=== PATIENT | female | born 1980 | race Caucasian/White ===

== ENCOUNTER 2017-05-13 18:39 | Emergency (ER) | payer BC, OTHER ==
[2017-05-13 19:14] VITALS: BP 113/79
[2017-05-13] MEDS ORDERED: HYDROCODONE/ACETAMINOPHEN 5-325 MG (6 TAB/ER DISP) PO PRN (21:26)
[2017-05-13] MEDS ORDERED: CEPHALEXIN 500 MG CAPSULE PO ONE (21:26)
[2017-05-13] MEDS ORDERED: SULFAMETHOXAZOLE/TRIMETHOPRIM 800-160 MG TABLET PO ONE (21:26)
--- NOTE | 2017-05-13 21:30 | ER Document Report ---
ED Extremity Problem, Lower - General Chief Complaint: Foot Pain Stated Complaint: FOOT PAIN Time Seen by Provider: 05/13/17 21:25 Mode of Arrival: Ambulatory Information source: Patient Notes: 36-year-old female presented ED for complaint of pain to the right big toe this started yesterday. Patient presented with erythema pain and swelling to the side of the nail of the right great toe. - HPI Patient complains to provider of: Pain, Swelling Location: Great Toe Occurred: Yesterday Onset/Duration: Gradual Quality of pain: Pressure, Sharp Severity: Moderate Pain Level: 4 Context: Other - Pain swelling redness to the right great toe Recent injury: No Associated symptoms: Painful ambulation Exacerbated by: Movement, Walking Relieved by: Nothing - Related Data Allergies/Adverse Reactions: No Known Allergies Allergy (Verified 05/13/17 18:42) Past Medical History - General Information source: Patient - Social History Smoking Status: Current Every Day Smoker Cigarette use (# per day): Yes - 5-6 cigarettes a day Chew tobacco use (# tins/day): No Smoking Education Provided: Yes - 4 minutes Frequency of alcohol use: None Drug Abuse: Marijuana Occupation: [employer] with: Family Family History: Reviewed & Not Pertinent Patient has suicidal ideation: No Patient has homicidal ideation: No - Past Medical History Cardiac Medical History: Reports: None Pulmonary Medical History: Reports: None EENT Medical History: Reports: None Neurological Medical History: Reports: None Endocrine Medical History: Reports: None Renal/ Medical History: Reports: None Malignancy Medical History: Reports: None GI Medical History: Reports: None Musculoskeltal Medical History: Reports None Skin Medical History: Reports None Psychiatric Medical History: Reports: None Traumatic Medical History: Reports: None Infectious Medical History: Reports: None Past Surgical History: Reports: Hx Tubal Ligation - Immunizations Immunizations up to date: Yes Hx Diphtheria, Pertussis, Tetanus Vaccination: Yes Review of Systems - Review of Systems Constitutional: No symptoms reported EENT: No symptoms reported Cardiovascular: No symptoms reported Respiratory: No symptoms reported Gastrointestinal: No symptoms reported Genitourinary: No symptoms reported Female Genitourinary: No symptoms reported Musculoskeletal: No symptoms reported Skin: Other - Pain and swelling to the site of the right great toenail Hematologic/Lymphatic: No symptoms reported Neurological/Psychological: No symptoms reported -: Yes All other systems reviewed and negative Physical Exam - Vital signs Vitals: Temp Pulse Resp BP Pulse Ox 98.8 F 72 18 113/79 99 05/13/17 19:13 05/13/17 19:13 05/13/17 19:13 05/13/17 19:13 05/13/17 19:13 Interpretation: Normal - General General appearance: Appears well, Alert - HEENT Head: Normocephalic, Atraumatic Eyes: Normal Pupils: PERRL - Respiratory Respiratory status: No respiratory distress Chest status: Nontender Breath sounds: Normal Chest palpation: Normal - Cardiovascular Rhythm: Regular Heart sounds: Normal auscultation Murmur: No - Abdominal Inspection: Normal Distension: No distension Bowel sounds: Normal Tenderness: Nontender Organomegaly: No organomegaly - Back Back: Normal, Nontender - Extremities General upper extremity: Normal inspection, Nontender, Normal color, Normal ROM , Normal temperature General lower extremity: Normal inspection, Nontender, Normal color, Normal ROM , Normal temperature, Normal weight bearing. No: Mario's sign - Neurological Neuro grossly intact: Yes Cognition: Normal Orientation: AAOx4 Katt Coma Scale Eye Opening: Spontaneous [place] Coma Scale Verbal: Oriented Katt Coma Scale Motor: Obeys Commands Katt Coma Scale Total: 15 Speech: Normal Motor strength normal: LUE, RUE, LLE, RLE Sensory: Normal - Psychological Associated symptoms: Normal affect, Normal mood - Skin Skin Temperature: Warm Skin Moisture: Dry Skin Color: Normal Skin irregularity: Abscess - Paronychia to the right great toe Character of irregularity: Erythematous Irregularity with: Swelling, Tenderness, Warmth Course - Re-evaluation Re-evalutation: 05/14/17 02:26 Paronychia was I&D with an 18-gauge needle after cleaned with Betadine. Patient was treated with Keflex and Septra and instructed on use of Epson salt soaks. Patient was discharged home with a [facility] dispense pack and prescriptions for Septra and Keflex. Patient to follow-up with a human resources representative if paronychia does not heal properly. - Vital Signs Vital signs: Temp Pulse Resp BP Pulse Ox 98.8 F 72 18 113/79 99 05/13/17 19:13 05/13/17 19:13 05/13/17 19:13 05/13/17 19:13 05/13/17 19:13 Procedures - Incision and Drainage Right Toe Great toe Time completed: 21:15 Type: Simple Anesthetic type: Other - None mL's of anesthetic: 0 Blade size: Other - 18-gauge needle I&D procedure: Betadine prep applied, Sterile dressing applied Incision Method: Incision made with needle Amount/type of drainage: Small amount purulent drainage Discharge - Discharge Clinical Impression: Paronychia of great toe, right Condition: Stable Disposition: HOME, SELF-CARE Instructions: Family Physicians / Practices Additional Instructions: Paronychia You have an infection between the nail and the surrounding skin, called a paronychia. The germs infect the area after a minor skin injury, such as a hangnail. This infection is treated by releasing the pus. This is usually done by the skin from the nail. If the infection has spread underneath the nail, partial removal of the nail may be necessary. Hot-soak the area three or four times daily. Antibiotics are often given, but are not always necessary. Healing takes about a week. If pain or swelling becomes severe or if you develop fever or chills, call the doctor or return for re-examination. POST INCISION AND DRAINAGE: You have had an incision made to allow drainage of an abscess. The incision must remain open so that pus and debris can drain from the wound. If the abscess cavity is large, packing is placed. This keeps the tissues from collapsing and trapping pus inside, while the body shrinks the cavity. The packing may need to be replaced every day or two. The physician will instruct you on the packing. Keep a bulky dressing over the area. Replace it if it becomes saturated with blood or pus. Do not disturb the packing (if present). You may shower and cleanse the area with gentle soap and warm water two or three times a day. Local warmth may be soothing, and may promote faster healing. Return if you develop high fever or chills, or if you note spreading redness, increasing swelling, or increasing tenderness. ORAL NARCOTIC MEDICATION: You have been given a [facility] dispense pack for pain control. This medication is a narcotic. It's best taken with food, as nausea can result if taken on an empty stomach. Don't operate machinery or drive within six hours of taking this medication. Do not combine this medicine with alcohol, or with any medication which can cause sedation (such as cold tablets or sleeping pills) unless you get permission from the physician. Narcotics tend to cause constipation. If possible, drink plenty of fluids and eat a diet high in fiber and fruits. CEPHALEXIN: The antibiotic you've been prescribed is a member of the cephalosporin class. This type of antibiotic covers a wide variety of infections, including those of the skin, lungs, and urinary tract. It's useful for staph infections. This antibiotic is slightly similar to the penicillin family. In rare cases , a person who is allergic to penicillin will also be allergic to this medication. If you have had a severe allergic reaction to penicillin, and have not taken this antibiotic since that time, notify your doctor. Antibiotics which cover many germs ("broad spectrum" antibiotics) are more likely to cause diarrhea or "yeast" infections. Women prone to vaginal yeast problems may suffer an attack after taking this antibiotic. In infants, oral thrush (white spots "stuck" on the cheek) or yeast diaper rash may result. See your doctor if these problems occur. Call at once if you develop itching, hives , shortness of breath, or lightheadedness. TRIMETHOPRIM-SULFA: You have been given a prescription for trimethoprim-sulfa (TMS, Septra, Bactrim). This is a combination antibiotic of the sulfa class, often used for urinary tract infections, middle ear infections, bronchitis, shigella intestinal infection, and Pneumocystis pneumonia. TMS is usually well-tolerated. Occasional side effects include nausea and decreased appetite. Septra is not recommended for infants less than two months of age. Do not take this medication if you have experienced severe side effects or allergy to sulfa medicine. You should stop this medicine at once and contact your physician if you develop any rash, joint pain, shortness of breath, bruising, or jaundice ( yellow color in the skin), or if you develop any other new or unusual symptoms. Epsom Salt Soaks Soak the wound area in a container of warm epsom salt water. If you can't get the wound area into a bucket or whitfield, use a folded towel soaked in the epsom salt solution and apply to the area. Use clean hot tap water (about the temperature of a very warm bath), mixing in about one (1) teaspoon for every pint of water. Two gallon --> 16 teaspoons Epsom Salts One gallon --> 8 teaspoons Epsom Salts Two quarts --> 4 teaspoons Epsom Salts One quart --> 2 teaspoons Epsom Salts Soak the wound for about 20 minutes while gently moving it around in the water. Repeat this four (4) times a day. FOLLOW-UP CARE: Most simple abscesses will not require a follow up visit. If you had packing placed in the abscess, remove it as instructed by the physician. If you have been referred to a physician for follow-up care, call the physicians office for an appointment as you were instructed or within the next two days. If you experience worsening or a significant change in your symptoms, return to the Emergency Department at any time for re-evaluation. Prescriptions: Cephalexin Monohydrate [Keflex 500 mg Capsule] 500 mg PO Q6H 5 Days capsule Sulfamethoxazole/Trimethoprim [Septra-Ds 800-160 mg Tablet] 1 tab PO BID #20 tablet Forms: Smoking Cessation Education, Return to Work Referrals: MOISÉS SPENCER DPM [ACTIVE STAFF] - Follow up as needed [facility] [Provider Group] - Follow up as needed
== END 2017-05-13 22:19 | disposition home or self-care (01) ==
LOC: ER 18:39
PROC: 0H9MXZZ Drainage of Right Foot Skin, External Approach (ICD-10-PCS; principal; 2017-05-13)
DX: L03.031 Cellulitis of right toe (principal); M79.671 Pain in right foot; M79.674 Pain in right toe(s); M79.89 Other specified soft tissue disorders; F17.210 Nicotine dependence, cigarettes, uncomplicated
CPT/HCPCS: 99283

== ENCOUNTER 2017-10-15 12:25 | Inpatient (IN) | payer BC ==
[2017-10-15 13:24] LABS: ABSOLUTE BASOPHILS # (AUTO) 0.1 10^3/uL (0.0-0.2); ABSOLUTE EOSINOPHILS # (AUTO) 0.2 10^3/uL (0.0-0.6); ABSOLUTE LYMPHOCYTES (AUTO) 1.9 10^3/uL (0.5-4.7); ABSOLUTE MONOCYTES (AUTO) 0.5 10^3/uL (0.1-1.4); ABSOLUTE NEUT (AUTO) 4.7 10^3/uL (1.7-8.2); BASOPHILS % (AUTO) 0.9 % (0-2); EOSINOPHILS % (AUTO) 2.3 % (0-6); HEMATOCRIT 41.6 % (36.0-47.0); HEMOGLOBIN 13.4 g/dL (12.0-15.5); LYMPHOCYTES % (AUTO) 26.3 % (13-45); MEAN CORPUSCULAR HEMOGLOBIN 25.8 pg (27.0-33.4); MEAN CORPUSCULAR HGB CONC 32.3 g/dL (32.0-36.0); MEAN CORPUSCULAR VOLUME 80 fl (80-97); MONOCYTES % (AUTO) 7.4 % (3-13); PLATELET COUNT 246 10^3/uL (150-450); RED BLOOD COUNT 5.21 10^6/uL (3.72-5.28); RED CELL DISTRIBUTION WIDTH 17.1 % (11.5-14.0); SEGMENTED NEUTROPHILS % (AUTO) 63.1 % (42-78); TOTAL CELLS COUNTED % (AUTO) 100 %; WHITE BLOOD COUNT 7.4 10^3/uL (4.0-10.5)
[2017-10-15 13:25] LABS: APPEARANCE,URINE CLEAR; BILIRUBIN,URINE NEGATIVE (NEGATIVE); COLOR,URINE COLORLESS; GLUCOSE, URINE NEGATIVE (NEGATIVE); KETONES,URINE NEGATIVE (NEGATIVE); LEUKOCYTE ESTERASE,URINE NEGATIVE (NEGATIVE); NITRITE,URINE NEGATIVE (NEGATIVE); PROTEIN,URINE NEGATIVE (NEGATIVE); URINE SPECIFIC GRAVITY 1.003; UROBILINOGEN,URINE NEGATIVE mg/dL (<2.0)
[2017-10-15 13:31] LABS: ALANINE AMINOTRANSFERASE 9 U/L (9-52); ALKALINE PHOSPHATASE 64 U/L (38-126); ANION GAP 14 (5-19); ASPARTATE AMINO TRANSFERASE 18 U/L (14-36); BILIRUBIN,DIRECT 0.3 mg/dL (0.0-0.4); BILIRUBIN,TOTAL 0.5 mg/dL (0.2-1.3); BLOOD UREA NITROGEN 12 mg/dL (7-20); CARBON DIOXIDE 20 mmol/L (22-30); CHLORIDE 110 mmol/L (98-107); GLUCOSE 82 mg/dL (75-110); POTASSIUM 4.2 mmol/L (3.6-5.0); SODIUM 143.7 mmol/L (137-145); TOTAL PROTEIN 7.4 g/dL (6.3-8.2)
[2017-10-15] MEDS ORDERED: NORMAL SALINE 1000 ML 1,000 ML IV ONE (14:10)
--- NOTE | 2017-10-15 14:17 | ER Document Report ---
ED Psych Disorder / Suicide - General Mode of Arrival: Medic Information source: Relative TRAVEL OUTSIDE OF THE [place] IN LAST 30 DAYS: No <JAMARI RAMIREZ - Last Filed: 10/15/17 14:08> <JOSE NGUYEN - Last Filed: 10/15/17 17:00> - General Chief Complaint: Possible Overdose Stated Complaint: POSSIBLE OVER OVERDOSE Time Seen by Provider: 10/15/17 13:59 Notes: 36-year-old female who presents to the emergency department today after being found unresponsive by her . at bedside states that her and the patient had been having "problems" for the last few weeks and on Saturday the patient moved out of the house they share to live with a friend. goes on to state that the patient had been having a relationship with another female which is what caused the problems in their marriage. Patient states when he left his house this morning at 0700 she was not there but when he arrived back at home at around 0930 she was lying in his bed unresponsive and snoring. states that the patient has a history of "mixing drugs" and goes on to elaborate this as taking [place], Tylenol, and Motrin in normal doses together. (JAMARI RAMIREZ) - Related Data Allergies/Adverse Reactions: No Known Allergies Allergy (Verified 05/13/17 18:42) Past Medical History - General Information source[facility] - Social History Smoking Status: Current Every Day Smoker Cigarette use (# per day): Yes Family History: Reviewed & Not Pertinent Patient has suicidal ideation: No Patient has homicidal ideation: No Renal/ Medical History: Denies: Hx Peritoneal Dialysis Past Surgical History: Reports: Hx Tubal Ligation - Immunizations Immunizations up to date: Yes Hx Diphtheria, Pertussis, Tetanus Vaccination: Yes <JAMARI RAMIREZ - Last Filed: 10/15/17 14:08> Review of Systems - Review of Systems -: Yes ROS unobtainable due to patient's medical condition <JAMARI RAMIREZ - Last Filed: 10/15/17 14:08> Physical Exam <JAMARI RAMIREZ - Last Filed: 10/15/17 14:08> <JOSE NGUYEN - Last Filed: 10/15/17 17:00> - Vital signs Vitals: Resp Pulse Ox 17 98 10/15/17 12:46 10/15/17 12:46 - Notes Notes: Physical Exam: General: Somnolent, unresponsive, snoring respirations. HEENT: Normocephalic. Atraumatic. Pupils are small and sluggishly reactive. Oropharynx clear. Neck: Supple. Non-tender. Respiratory: No respiratory distress. Clear and equal breath sounds bilaterally. Cardiovascular: Regular rate and rhythm. Abdominal: Normal Inspection. Non-tender. No distension. Normal Bowel Sounds. Back: Non-tender. No deformity or step off. Extremities: Moves all four extremities. Upper extremities: Normal inspection. No edema. Lower extremities: Normal inspection. No edema. Skin: Warm. Dry. Normal color. (JAMARI RAMIREZ) Course - Laboratory Result Diagrams: 10/15/17 12:49 10/15/17 12:49 <JAMARI RAMIREZ - Last Filed: 10/15/17 14:08> - Laboratory Result Diagrams: 10/15/17 12:49 10/15/17 12:49 - Diagnostic Test Radiology reviewed: Reports reviewed - CT scan of the brain is normal. - EKG Interpretation by [facility] EKG shows normal: Sinus rhythm, [place], Intervals, QRS Complexes, ST-T Waves Rate: Normal - 62 Rhythm: NSR - Consults Dr. Reddy Time consulted: 16:05 Consulted provider: will come to ER <JOSE NGUYEN - Last Filed: 10/15/17 17:00> - Re-evaluation Re-evalutation: 10/15/17 15:26 Ammonia capsule was placed on the patient's nose. She promptly stopped breathing. She would occasionally take a breath, and stirred a little bit. At that point she was clenching her eyes closed. I lifted her eyelids and her pupils are gone from about 1 mm for the last few hours to suddenly widely dilated. When stimulated with more noxious stimulus the patient did tend to move her facial muscles and clench her eyes but did not try very hard to get away from the noxious stimulus. I did try placing a tongue blade in her mouth, had difficulty getting past the tongue as she almost seemed to be biting down, when I was able to get to the posterior pharynx she did have minimal gag. 10/15/17 16:12 The urine drug screen came back positive for benzodiazepines which could explain all the clinical findings. 10/15/17 16:21 I spoke with the who reports he just learned from 1 of his daughters that his 's new girlfriend takes pills and thinks that is the likely source of her getting access to benzodiazepines. He reports that he does take Xanax, however he keeps his pill bottle in a bag that he carries with him to and from work and he carried the medicines with him this morning. He states there are possibly a few pills missing and the medicine was at home yesterday when she was there. But he states if any is missing it is very few. He also reports that she does not normally eat breakfast. We know that she was trying to drink coffee at 0630 this morning, and the spouse reports that is her normal breakfast. Based on this information, the patient had nothing to eat in over 8 hours and nothing to drink in over 6 hours. (JOSE NGUYEN) - Vital Signs Vital signs: Temp Pulse Resp BP Pulse Ox 16 99/64 L 97 10/15/17 13:01 10/15/17 13:00 10/15/17 13:01 - Laboratory Laboratory results interpreted by me: 10/15/17 10/15/17 12:49 12:49 MCH 25.8 L RDW 17.1 H Chloride 110 H Carbon Dioxide 20 L Critical Care Note - Critical Care Note Total time excluding time spent on procedures (mins): 45 <JOSE NGUYEN - Last Filed: 10/15/17 17:00> Discharge <JAMARI RAMIREZ - Last Filed: 10/15/17 14:08> - Discharge Admitting Provider: Hospitalist Unit Admitted: ICU <JOSE NGUYEN - Last Filed: 10/15/17 17:00> - Discharge Clinical Impression: Altered mental status Qualifiers: Altered mental status type: unspecified Qualified Code(s): R41.82 - Altered mental status, unspecified Hypotension Qualifiers: Hypotension type: unspecified hypotension type Qualified Code(s): I95.9 - Hypotension, unspecified Benzodiazepine overdose Qualifiers: Encounter type: initial encounter Injury intent: intentional self-harm Qualified Code(s): T42.4X2A - Poisoning by benzodiazepines, intentional self- harm, initial encounter Condition: Fair Disposition: ADMITTED INPATIENT Scribe Attestation: 10/15/17 14:40 I personally performed the services described in the documentation, reviewed and edited the documentation which was dictated to the scribe in my presence, and it accurately records my words and actions. (JOSE NGUYEN) Scribe Documentation - Scribe Written by Cali:: Cali Aguirre, 10/15/2017 1413 acting as scribe for :: Laura <JAMARI RAMIREZ - Last Filed: 10/15/17 14:08>
[2017-10-15 14:26] LABS: ACETAMINOPHEN 14 ug/mL (10-30); SALICYLATE 10.9 mg/dL (2.0-20.0)
[2017-10-15 14:28] LABS: ALCOHOL < 10 mg/dL (NONE DETECTED)
--- NOTE | 2017-10-15 14:32 | RADIOLOGY REPORT (SQ) ---
EXAM DESCRIPTION: CT HEAD WITHOUT COMPLETED DATE/TIME: 10/15/2017 2:25 pm REASON FOR STUDY: Comatose COMPARISON: None. TECHNIQUE: Axial images acquired through the brain without intravenous contrast. Images reviewed wi th bone, brain and subdural windows. Images stored on PACS. All CT scanners at this facility use dose modulation, iterative reconstruction, and/or weight based d osing when appropriate to reduce radiation dose to as low as reasonably achievable (ALARA). [facility]: Dose Right [facility]: CareDose [facility]: Dose Right [facility]: Teradose 4D [facility]: [email or web address] RADIATION DOSE: CT Rad equipment meets quality standard of care and radiation dose reduction techniq ues were employed. CTDIvol: 53.2 mGy. DLP: 991 mGy-cm. mGy. LIMITATIONS: None. FINDINGS: VENTRICLES: Normal size and contour. CEREBRUM: No masses. No hemorrhage. No midline shift. No evidence for acute infarction. Normal gra y/white matter differentiation. No areas of low density in the white matter. CEREBELLUM: No masses. No hemorrhage. No alteration of density. No evidence for acute infarction. EXTRAAXIAL SPACES: No fluid collections. No masses. ORBITS AND GLOBE: No intra- or extraconal masses. Normal contour of globe without masses. CALVARIUM: No fracture. PARANASAL SINUSES: No fluid or mucosal thickening. SOFT TISSUES: No mass or hematoma. OTHER: No other significant finding. IMPRESSION: NORMAL BRAIN CT WITHOUT CONTRAST. EVIDENCE OF ACUTE STROKE: NO. COMMENT: Quality ID # [id number]: Final reports with documentation of one or more dose reduction techniques (e.g., Automated exposure control, adjustment of the mA and/or kV according to patient size, use of iterative reconstruction technique) TECHNICAL DOCUMENTATION: JOB ID: [id number] [employer]- All Rights Reserved Reading location - IP[facility]workstation name: [facility]
[2017-10-15] MEDS ORDERED: AMMONIA INHALANTS 10 AMPUL/BOX IH ONE ×2 (15:21→15:24)
[2017-10-15 15:37] LABS: CREATINE KINASE 58 U/L (30-135)
[2017-10-15 15:50] LABS: CREATINE KINASE MB 0.33 ng/mL (<4.55); TROPONIN I < 0.012 ng/mL
[2017-10-15 15:59] LABS: URINE AMPHETAMINES SCREEN NEGATIVE; URINE BARBITURATES SCREEN NEGATIVE; URINE BENZODIAZEPINES SCREEN UNCONFIRMED POSITIVE; URINE COCAINE SCREEN NEGATIVE; URINE MARIJUANA (THC) SCREEN NEGATIVE; URINE METHADONE SCREEN NEGATIVE; URINE PHENCYCLIDINE SCREEN NEGATIVE
--- NOTE | 2017-10-15 19:50 | EKG REPORT ---
SEVERITY:- NORMAL ECG - SINUS RHYTHM : Confirmed by: Renaldo Patel MD 15-Oct-2017 19:50:08
--- NOTE | 2017-10-15 20:28 | PDOC H&P ---
History of Present Illness Admission Date/PCP: 10/15/17 17:07 Patient complains of: drug overdose History of Present Illness: YONATAN GAMA is a 36 year old female no significant past medical history who was brought in after being found unresponsive. History was obtained from patient's who said that they have been having some marital issues. says that patient was apparently fine last night and early this morning. He says that he recently found out patient was having an affair. He says he got a text from her last night saying that she hopes he will soon find the right person for him. According to patient's , patient was awake and well oriented earlier this morning however she was found very lethargic around 930 this morning. In the ER, patient was initially noted to be obtunded she was protecting her airway and was maintaining her saturation. CT of the head was negative. Her UDS came back positive for benzodiazepines. Patient's did say that patient may have had a few pills of Xanax at home. Past Surgical History Past Surgical History: Reports: Tubal Ligation Social History Smoking Status: Current Every Day Smoker Family History Family History: Reviewed & Not Pertinent Parental Family History Reviewed: Yes - No known history of premature CAD Children Family History Reviewed: Yes Sibling(s) Family History Reviewed.: No Medication/Allergy Home Medications: No Home Medications 10/15/17 Allergies/Adverse Reactions: No Known Allergies Allergy (Verified 05/13/17 18:42) Physical Exam Vital Signs: Temp Pulse Resp BP Pulse Ox 13 104/63 99 10/15/17 19:02 10/15/17 19:02 10/15/17 19:02 General appearance: PRESENT: other - Patient is obtunded. She does withdraw and localized to painful stimulus. No apparent weakness on left or right extremities. Head exam: PRESENT: atraumatic, normocephalic Eye exam: PRESENT: conjunctiva pink, EOMI, PERRLA. ABSENT: scleral icterus Ear exam: PRESENT: normal external ear exam Neck exam: ABSENT: carotid bruit, JVD, lymphadenopathy, thyromegaly Respiratory exam: PRESENT: clear to auscultation montse. ABSENT: rales, rhonchi, wheezes Cardiovascular exam: PRESENT: RRR. ABSENT: diastolic murmur, rubs, systolic murmur Pulses: PRESENT: normal dorsalis pedis pul GI/Abdominal exam: PRESENT: normal bowel sounds, soft. ABSENT: distended, guarding, mass, organolmegaly, rebound, tenderness Rectal exam: PRESENT: deferred Neurological exam: PRESENT: other - Patient is obtunded. She does withdraw and localized to painful stimulus. No apparent weakness on left or right extremities. Pupils are dilated and are equally and briskly reactive to light. She does have an intact gag reflex. Results Impressions: Head CT 10/15/17 14:10 IMPRESSION: NORMAL BRAIN CT WITHOUT CONTRAST. EVIDENCE OF ACUTE STROKE: NO. Assessment & Plan - Diagnosis (1) Acute encephalopathy Is this a current diagnosis for this admission?: Yes Plan: This is likely secondary to benzodiazepine overdose. CT of the head was negative. UDS was noted for benzodiazepines. Tox screen is also also positive for salicylates and acetaminophen. We will continue with supportive management. She is breathing spontaneously in the 18-20. When taken of nasal cannula, patient is saturating at 93-94%. Patient will be admitted to the ICU for closer monitoring for compromise of airway protection. (2) Benzodiazepine overdose Qualifiers: Encounter type: initial encounter Injury intent: intentional self-harm Qualified Code(s): T42.4X2A - Poisoning by benzodiazepines, intentional self- harm, initial encounter Is this a current diagnosis for this admission?: Yes Plan: This appears to be intentional overdose. We will consult psych for further evaluation. Patient will need to be IVCed.
[2017-10-15] MEDS ORDERED: VANCOMYCIN HCL INJ 500 MG VIAL ONE (22:13)
[2017-10-15] MEDS ORDERED: VANCOMYCIN HCL INJ 1000 MG VIAL ONE (22:13)
[2017-10-15] MEDS: HEPARIN SOD (PORCINE) 5,000 UNIT/ML 1 ML SYRINGE SUBCUT SCH (22:24)
[2017-10-15] MEDS: NORMAL SALINE 1000 ML 1,000 ML IV PRN (23:28)
[2017-10-16] MEDS: HEPARIN SOD (PORCINE) 5,000 UNIT/ML 1 ML SYRINGE SUBCUT SCH ×3 (05:19→23:13)
[2017-10-16] MEDS: NORMAL SALINE 1000 ML 1,000 ML IV PRN ×2 (08:14→16:13)
--- NOTE | 2017-10-16 17:57 | PDOC PROGRESS REPORT ---
Subjective Progress Note for:: 10/16/17 Subjective:: Ms. Servin is a 36-year-old female who was brought in after being found obtunded. She was admitted for benzodiazepine overdose. No acute event overnight. Patient started waking last night. This morning, patient was fully awake, coherent and well oriented. She does admit to taking 9 pills of Xanax along with diphenhydramine because of marital issues. She currently denies any suicidal or homicidal ideations. Denies hallucinations or delusions. Reason For Visit: ACUTE ENCEPHALOPATHY Physical Exam Vital Signs: Temp Pulse Resp BP Pulse Ox 98.7 F 90 18 104/61 97 10/16/17 15:37 10/16/17 15:37 10/16/17 15:37 10/16/17 15:37 10/16/17 15:37 Intake & Output 10/15/17 10/16/17 10/17/17 06:59 06:59 06:59 Intake Total 0 1958 Balance 0 1958 Weight 154 lb 1.65 oz General appearance: PRESENT: no acute distress, well-developed, well-nourished Head exam: PRESENT: atraumatic, normocephalic Eye exam: PRESENT: conjunctiva pink, EOMI, PERRLA. ABSENT: scleral icterus Ear exam: PRESENT: normal external ear exam Neck exam: ABSENT: carotid bruit, JVD, lymphadenopathy, thyromegaly Respiratory exam: PRESENT: clear to auscultation montse. ABSENT: rales, rhonchi, wheezes Cardiovascular exam: PRESENT: RRR. ABSENT: diastolic murmur, rubs, systolic murmur Pulses: PRESENT: normal dorsalis pedis pul GI/Abdominal exam: PRESENT: normal bowel sounds, soft. ABSENT: distended, guarding, mass, organolmegaly, rebound, tenderness Rectal exam: PRESENT: deferred Neurological exam: PRESENT: alert, awake, oriented to person, oriented to place , oriented to time, oriented to situation, CN II-XII grossly intact. ABSENT: motor sensory deficit Focused psych exam: PRESENT: other - She has a flat affect. Appears depressed. Denies suicidal or homicidal ideations. Denies delusions or hallucinations. Results Impressions: Head CT 10/15/17 14:10 IMPRESSION: NORMAL BRAIN CT WITHOUT CONTRAST. EVIDENCE OF ACUTE STROKE: NO. Assessment & Plan - Diagnosis (1) Acute encephalopathy Is this a current diagnosis for this admission?: Yes Plan: Resolved. Acute encephalopathy was secondary to benzodiazepine and diphenhydramine overdose. (2) Benzodiazepine overdose Qualifiers: Encounter type: initial encounter Injury intent: intentional self-harm Qualified Code(s): T42.4X2A - Poisoning by benzodiazepines, intentional self- harm, initial encounter Is this a current diagnosis for this admission?: Yes Plan: This appears to be intentional overdose. Psych following. Patient has been IVC. Patient will be going for inpatient psych treatment. - Time Time Spent with patient: 15-24 minutes
--- NOTE | 2017-10-16 19:16 | PSYCHOLOGICAL NOTE ---
Psych Note - Psych Note Psych Note: Reason for consult: overdose Consent permissions: Patient's , Cale, at bedside per patient's request Ms. Servin is a 36-year-old female who was brought in after being found unconscious. She was admitted for benzodiazepine overdose. Patient confirms she attempted suicide by taking pills; Benadryl and Xanax. She states that she has been in recent "a rough patch with her and daughter on decisions I chose to make." She reports that she was feeling like she "was hurting everyone so thought it would be easier if I was no longer here. " She disclosed frustration that no matter what choice she makes she was going to hurt someone; "I am either going to hurt the one I love or my ." Clinician notes patient overdosed after her found out she was having an affair. Patient confirms that she did text her ; however, denies stating that she was going to commit suicide in the text. Patient's provided clinician with his cell phone to look at the text. Patient text a suicide note to her hoping he would find somebody to do that would treat him right and some when he deserves "after tonight." Patient confirms she took the medications Saturday evening and never second cast or contacted anyone else after taking the medication. She reports onset was just previous to taking the medication. Patient denies having any mental health history or receiving any medications or outpatient therapy other than "marriage counseling once a while back." Patient's , Cale, disclosed the patient overdosed on his Xanax. He reports that the patient had recently moved out of the home and he had found out that she was having an affair with another woman so had spoken to her about that just previous. He disclosed that when she text him 11:00 at night on Saturday he was already sleeping and did not see the text until next day while he was at work. Patient is alert and orientated to person, place, time and circumstance. Mood is euthymic with congruent affect. Patient endorses intentional overdose. Patient denies homicidal ideation. Delusions are absent behaviors congruent with an intact reality based presentation i.e. organized and linear, thought processes. Eye contact was well-maintained. Conversational speech was within normal rate, tone and prosody. Intellectual abilities appear to be within average range. Attention and concentration were fair. Insight, judgment, impulse control are poor. No medication recommendations at this time Diagnosis 311 (F32.9) unspecified depressive disorder Impression/plan: patient is recommended for IVC. Patient disclosed that she intentional overdosed. Patient disclosed that she has an immediate onset from stressors and confirms she texted her a suicide note. She did not contact anyone else and denies second guessing herself and attempting to reach out for help after ingesting the pills. She reports no history of mental health. Patient will be re-evaluated. Dr. Amaro was consulted on the care and management of this patient.
[2017-10-17] MEDS: NORMAL SALINE 1000 ML 1,000 ML IV PRN ×2 (01:25→05:25)
[2017-10-17] MEDS: HEPARIN SOD (PORCINE) 5,000 UNIT/ML 1 ML SYRINGE SUBCUT SCH ×2 (05:24→13:48)
--- NOTE | 2017-10-17 08:53 | Progress Note ---
Provider Note Provider Note: Patient is stable and is medically cleared to be transferred to inpatient psych.
--- NOTE | 2017-10-17 12:04 | Physician Advisory Note ---
Physician Advisor ProgressNote .: [facility] medical [facility] for this patient. Physician Advisor Statement: Nice documentation of "obtundation" & "acute toxic encephalopathy due to OD w/ benzos/..." Do you think she also has "Possible major depression, acute episode", or ...? Thanks! CK Summary: pt w/total GCS of 10 on arrival in ED s/p intentional OD w/benzos/ diphenhydramine....
--- NOTE | 2017-10-17 12:11 | PSYCHOLOGICAL NOTE ---
Psych Note - Psych Note Psych Note: Reason for consult: overdose Consent permissions: Patient's , Cale, at bedside per patient's request Ms. Servin is a 36-year-old female who was brought in after being found unconscious. She was admitted for benzodiazepine overdose. Chart review was conducted: No new concerns are noted by [facility] staff Diagnosis 311 (F32.9) unspecified depressive disorder Impression/plan: patient is recommended for continued IVC. Patient disclosed that she intentional overdosed. Patient disclosed that she has an immediate onset from stressors and confirms she texted her a suicide note. She did not contact anyone else and denies second guessing herself and attempting to reach out for help after ingesting the pills. Patient has been accepted to [facility]; transportation has been requested. Patient will be re-evaluated. Dr. Amaro was consulted on the care and management of this patient.
--- NOTE | 2017-10-17 14:17 | PDOC TRANSFER SUMMARY ---
General Admission Date/PCP: 10/15/17 17:07 - Transfer Diagnosis (1) Acute encephalopathy Is this a current diagnosis for this admission?: Yes (2) Benzodiazepine overdose Is this a current diagnosis for this admission?: Yes - Transfer Medications Home Medications: No Home Medications 10/15/17 Transfer Medications: Current Medications Heparin Sodium (Porcine) (Heparin Inj 5,000 Units/Ml 1 Ml Syringe) 5,000 unit SUBCUT Q8 LAKISHA Stop: 11/14/17 21:59 Last Admin: 10/17/17 13:48 Dose: 5,000 unit Sodium Chloride (Saline Flush 2.5 Ml Monoject Prefil Syrin) 2.5 ml IV Q8 LAKISHA Stop: 11/14/17 21:59 Last Admin: 10/17/17 13:48 Dose: 2.5 ml - Allergies Allergies/Adverse Reactions: No Known Allergies Allergy (Verified 05/13/17 18:42) Hospital Course Hospital Course: Ms. Servin is a 36-year-old female with no past medical history who was brought in after being found obtunded at home. She was admitted for benzodiazepine overdose. Patient was not intubated and was managed supportively. She started waking up the night of admission and started becoming more alert and oriented. She did later admit to taking 9 pills of Xanax along with diphenhydramine because of marital issues. She has been medically stable with no acute issues. Psychiatry was consulted and patient has been IVCed. Patient will be going to inpatient psych for further management. Patient has been cooperative and is willing to go to [facility]. Physical Exam Vital Signs: Temp Pulse Resp BP Pulse Ox 98.4 F 56 L 18 102/58 L 100 10/17/17 11:20 10/17/17 11:20 10/17/17 11:20 10/17/17 11:20 10/17/17 11:20 Intake & Output 10/16/17 10/17/17 10/18/17 06:59 06:59 06:59 Intake Total 0 4712 800 Balance 0 4712 800 Weight 154 lb 1.65 oz 161 lb 9.581 oz General appearance: PRESENT: no acute distress, well-developed, well-nourished Head exam: PRESENT: atraumatic, normocephalic Eye exam: PRESENT: conjunctiva pink, EOMI, PERRLA. ABSENT: scleral icterus Ear exam: PRESENT: normal external ear exam Mouth exam: PRESENT: moist, tongue midline Respiratory exam: PRESENT: clear to auscultation montse. ABSENT: rales, rhonchi, wheezes Cardiovascular exam: PRESENT: RRR. ABSENT: diastolic murmur, rubs, systolic murmur Pulses: PRESENT: normal dorsalis pedis pul GI/Abdominal exam: PRESENT: normal bowel sounds, soft. ABSENT: distended, guarding, mass, organolmegaly, rebound, tenderness Rectal exam: PRESENT: deferred Musculoskeletal exam: PRESENT: ambulatory Neurological exam: PRESENT: alert, awake, oriented to person, oriented to place , oriented to time, oriented to situation, CN II-XII grossly intact. ABSENT: motor sensory deficit Psychiatric exam: PRESENT: other - Affect is more appropriate today. Denies suicidal or homicidal ideations. Results Impressions: Head CT 10/15/17 14:10 IMPRESSION: NORMAL BRAIN CT WITHOUT CONTRAST. EVIDENCE OF ACUTE STROKE: NO.
[2017-10-17 15:35] VITALS: BP 97/50
== END 2017-10-17 15:51 | DRG 917 ==
LOC: ER 12:25 → EH 17:07 → 3S 22:06
PROVIDERS: ADMIT Internal Medicine; ATTEND Internal Medicine
DX: T42.4X2A Poisoning by benzodiazepines, intentional self-harm, initial encounter (principal); G92 Toxic encephalopathy; I95.2 Hypotension due to drugs; Y92.9 Unspecified place or not applicable; F17.210 Nicotine dependence, cigarettes, uncomplicated; F32.9 Major depressive disorder, single episode, unspecified; Z63.0 Problems in relationship with spouse or partner
CPT/HCPCS: 36415; 70450; 80053; 80307; 81001; 82542; 82550; 82553; 84484; 84703; 85025; 93005; 93010; 96360; 99291; J1644; J3490; J7030